=== PATIENT | female | born 1955 | race Caucasian/White ===

== ENCOUNTER 2018-10-25 08:30 | Inpatient (IN) | payer OTHER ==
[~2018-10-25] VITALS: Ht 157.5 cm; Wt 53.3 kg
--- NOTE | 2018-11-05 14:28 | RADRPT ---
Vent Rate: 62 bpm RR Interval: 0 msec OH Interval: 176 msec QRS Duration: 86 msec QT Interval: 418 msec QTC Interval: 424 msec P-R-T [place]: 71 - 8 - 47 degrees Sinus bradycardia with premature atrial complexes with aberrant conduction Low voltage QRS Borderline ECG Electronically Signed By: Gianluca Almanzar
[2018-11-07] MEDS ORDERED: TRANEXAMIC ACID 1GM/100ML(PMX) 100 ML IVPB ONE (06:30)
[2018-11-08] VITALS (22 sets, daily range): BP systolic 93–135; BP diastolic 49–59; PULSE 55–90; RESP 13–20; Ht 157.5 cm; Wt 53.3 kg
--- NOTE | 2018-11-08 06:08 | HPN ---
Date/Time of Note Date/Time of Note DATE: 11/08/18 TIME: 06:08 Interval H&P Admission Note Pt. seen H&P reviewed: No system changes ANU RICHARD MD Nov 08, 2018 06:08
--- NOTE | 2018-11-08 06:11 | OPR ---
Date/Time of Note Date/Time of Note DATE: 11/08/18 TIME: 06:08 Operative Report Procedure Date: Nov 08, 2018 Preoperative Diagnosis Right hip posttraumatic arthritis following hip arthroscopy Postoperative Diagnosis Right hip posttraumatic arthritis following hip arthroscopy Operation/Procedure Performed 1. Right total hip arthroplasty following hip arthroscopy 2. Right hip injection of PRP solution Surgeon see signature line Wedding Planner Leo Barton PA-C Second Wedding Planner: HANS DOCKERY Anesthesia Type: general Estimated Blood Loss: 200 - 250 ml's Transfusion none Specimen See operative note Grafts/Implants See operative note Complications none Pt Condition Post Procedure: stable Disposition: PACU Procedure Description CUSTOMER RELATIONS ASSISTANT SURGEON: Leo Barton PA-C was asked to be present at my request as a result of the complexity associated with this procedure including positioning of the extremity, positioning of the instrumentation and protection of the neurovascular structures. In my opinion, the assistance offered by a medical or surgical instrument maker is insufficient and Leo Barton PA-C should be compensated for his time. PROCEDURE IN DETAIL: Following the administration of general endotracheal anesthesia supplemented with a spinal anesthetic, the patient was placed in the supine position. The antecubital fossa on the right was prepped and 60 cc of blood were aspirated. Under sterile conditions, the blood was passed off to the new accounts representative from the company who prepared the PRP solution. The right lower extremity was then prepped and draped in the usual sterile fashion. A rn chronic radiograph was obtained for preliminary limb length and femoral size as well as acetabular size. A lateral incision was then made exposing the tensor fascia the fascia was incised the tensor was retracted laterally and the vessels were cauterized. Severe scarring was noted from the prior surgical procedure that included an arthroscopic labral repair and capsulorrhaphy. Significant scar tissue was then excised and mobilized in order to expose the anterior capsule. The anterior capsule was then identified and prepared. A capsulectomy was then performed and the femoral head was then evaluated. Severe arthritic changes were noted. In addition, multiple sutures were removed from the prior labral repair. A femoral head cut was then made in the appropriate degree of version and incl ination. Following dislocation, severe arthritic changes were noted with very certain severe cystic changes in the femoral head. The acetabulum was then exposed and a capsulectomy and labrectomy were completed. The central portion was then entered and serially reamed up to the 49 mm size. A [employer] cup which was 50 mm, with a standard liner was then fit into position with solid fixation. A 30 mm screw was used for additional fixation. Attention was then directed to the femur, the femur was exposed and prepared. The canal was entered and serially reamed up to the size 3. The femoral canal was then thoroughly irrigated and the PRP solution was then instilled into the femoral canal. A size 3 Depuy Actis stem was then inserted with solid fixation. A 32 mm, +1.5 mm femoral head, which was ceramic was then inserted. The leg was taken through full range of motion with no evident instability. In addition, radiographs revealed excellent position with reproduction of the limb lengths within a millimeter. The wound was irrigated thoroughly. The wound was then closed in layers and a Prenio for the final cover. This was watertight. Estimated blood loss was procedure was 250 cc. Postoperative radiographs will be obtained in the recovery room. ANU RICHARD MD Nov 08, 2018 06:11
[2018-11-08] MEDS ORDERED: SOD CHLORIDE 0.9% 100 ML, TRANEXAMIC ACID 3,000 MG IRR ONE ×2 (07:00)
[2018-11-08] MEDS ORDERED: VANCOMYCIN 1 GM (PMX) 250 ML IVPB ONE (07:00)
[2018-11-08] MEDS ORDERED: DEXAMETHASONE 1 MG TAB PO ONE (07:00)
[2018-11-08] MEDS ORDERED: GABAPENTIN 300 MG CAP PO ONE (07:00)
[2018-11-08] MEDS ORDERED: BUPIVACAINE 0.5% (SDV) 30 ML, morphine SULFATE (PF) 8 MG, EPINEPHrine 0.3 MG, KETOROLAC... IRR SCH ×7 (07:00)
[2018-11-08] MEDS ORDERED: LIDOCAINE 2% (SDV) 5 ML INJ ONE (07:00)
[2018-11-08] MEDS ORDERED: TRANEXAMIC ACID 1GM/100ML(PMX) 100 ML IVPB ONE (07:00)
[2018-11-08] MEDS ORDERED: ESTR2TAB PO (11:13)
[2018-11-08] MEDS ORDERED: MEDR2.5T21 PO (11:13)
[2018-11-08] MEDS ORDERED: ALBU18HF INHALATION (11:14)
[2018-11-08] MEDS ORDERED: OMEP20CA16 PO (11:14)
[2018-11-08] MEDS ORDERED: MIDAZOLAM 1 MG/ML 2 ML INJ ONE (11:54)
--- NOTE | 2018-11-08 12:01 | PREAC ---
Date/Time of Note Date/Time of Note DATE: 11/08/18 TIME: 12:00 Anesthesia Eval and Record Evaluation Time Pre-Procedure Interview DATE: 11/08/18 TIME: 12:00 Age 62 Sex female NPO: 8 hrs Preoperative diagnosis R Hip OA Planned procedure R Total Hip Replacement Past Medical History Past Medical History: Includes Pulm: Asthma GI: GERD Psych: Anxiety Surgery & Anesthesia Issues No known issue Meds Anticoagulation: No Beta Emy within 24 hr: No Reason Beta Emy not given: Pt. not on B-Emy Reported Medications Omeprazole* (Omeprazole*) 20 Mg Capsule.dr, 20 MG PO DAILY PRN for GASTROINTESTINAL UPSET, #30 CAP 11/08/18 Albuterol Sulfate* (Ventolin HFA*) 18 Gm Hfa.aer.ad, 2 PUFF INHALATION Q4H, #1 INHALER 11/08/18 Medroxyprogesterone Acetate* (Medroxyprogesterone Acetate*) 2.5 Mg Tablet, 2.5 MG PO DAILY, TAB 11/08/18 Estradiol* (Estradiol*) 2 Mg Tablet, 1 MG PO DAILY, TAB 11/08/18 Current Medications Bupivacaine HCl/ Morphine Sulfate/ Epinephrine/ Ketorolac Tromethamine/ Clonidine/Sodium Chloride/ Vancomycin HCl INTRA-OP IRR ; Start 11/08/18 at 07:00 Meds reviewed: Yes Allergies Coded Allergies: Penicillins (Verified Allergy, Unknown, 11/08/18) Sulfa (Sulfonamide Antibiotics) (Verified Allergy, Unknown, 11/08/18) Tetanus Vaccines and Toxoid (Verified Allergy, Unknown, 11/08/18) doxycycline (Verified Allergy, Unknown, 11/08/18) egg (Verified Allergy, Unknown, 11/08/18) gentamicin (Verified Allergy, Unknown, 11/08/18) ibuprofen (Verified Allergy, Unknown, 11/08/18) polymyxin B (Verified Allergy, Unknown, 11/08/18) teriparatide (Verified Allergy, Unknown, 11/08/18) Allergies Reviewed: Yes Labs/Studies Labs Reviewed: Reviewed by anesthesiologist Result Diagram: 11/05/18 1311 11/05/18 1311 test: Negative Studies: ECG Pre-procedure Exam Airway: Adequate mouth opening, Adequate thyromental dist Mallampati: Mallampati II Teeth: Normal Lung: Normal Heart: Normal ASA Physical Status ASA physical status: 2 Emergency: None Planned Anesthetic General/MAC: ETT Neuraxial: Spinal Planned Pain Management Sub-arachniod narcotics Pre-operative Attestations Prior to commencing anesthesia and surgery, the patient was re-evaluated, there was verification of: *The patient's identity *The results of appropriate recent lab work and preoperative vital signs *The above evaluation not changing prior to induction *Anesthetic plan, risk benefits, alternative and complications discussed with patient/family; questions answered; patient/family understands, accepts and wishes to proceed. CANDE FELDMAN Nov 08, 2018 12:01
[2018-11-08] MEDS ORDERED: PHENYLephrine (100 MCG/ML) 10ML SYG ONE (12:21)
[2018-11-08] MEDS ORDERED: HYDROmorphONE 1 MG/5 ML IV SYRINGE IV PRN ×3 (12:30)
[2018-11-08] MEDS ORDERED: ONDANSETRON 4 MG INJ IV PRN ×2 (12:30→13:30)
[2018-11-08] MEDS ORDERED: METOCLOPRAMIDE 10 MG INJ IV PRN (12:30)
[2018-11-08] MEDS ORDERED: DIPHENHYDRAMINE 50 MG INJ IV PRN ×2 (12:30→13:30)
[2018-11-08] MEDS ORDERED: MEPERIDINE 25 MG INJ IV PRN (12:30)
[2018-11-08] MEDS ORDERED: FENTAnyl 50 MCG/ML VIAL IV PRN ×2 (12:30)
[2018-11-08] MEDS ORDERED: ALBUTEROL 0.083% (NEB) 2.5 MG/3 ML AMP HHN PRN (12:30)
[2018-11-08] MEDS ORDERED: THROMBIN 5000 UNIT VIAL ONE (12:36)
[2018-11-08] MEDS ORDERED: CA CHLORIDE 10% 10 ML SYRINGE ONE (12:36)
[2018-11-08] MEDS ORDERED: MAGNESIUM HYDROXIDE 30ML CUP PO PRN (13:30)
[2018-11-08] MEDS ORDERED: oxyCODONE 5 MG TAB PO PRN ×3 (13:30)
[2018-11-08] MEDS: LACTATED RINGER'S 1,000 ML IV SCH ×2 (13:30→22:45)
[2018-11-08] MEDS ORDERED: HYDROmorphONE 1 MG/ML SYG IV PRN (13:30)
[2018-11-08] MEDS ORDERED: NACL 0.9% 3 ML SYG IV SCH (13:30)
[2018-11-08] MEDS ORDERED: ZOLPIDEM 5 MG TAB PO PRN (13:30)
[2018-11-08] MEDS ORDERED: ROCURONIUM 50 MG INJ ONE (13:38)
[2018-11-08] MEDS ORDERED: SUCCINYLCHOLINE CHLORIDE 100 MG/5 ML SYG IV ONE (13:38)
[2018-11-08] MEDS ORDERED: SUGAMMADEX SODIUM 200 MG/2 ML VIAL IV ONE (13:38)
[2018-11-08] MEDS ORDERED: PROPOFOL 20 ML ONE (13:38)
[2018-11-08] MEDS: ACETAMINOPHEN 1000MG/100ML IV 100 ML IVPB SCH ×2 (15:04→22:41)
[2018-11-08] MEDS: DEXAMETHASONE 2 MG TAB PO SCH (18:00)
[2018-11-08] MEDS ORDERED: VANCOMYCIN 500 MG (PMX) 100 ML IVPB SCH (18:00)
--- NOTE | 2018-11-08 18:07 | PDOCDIS ---
Discharge Instructions DIAGNOSIS Discharge Diagnosis Post-Traumatic arthritis CONDITION [id number] Patient Condition: [id number] Good HOME CARE INSTRUCTIONS: [id number] Diet Instructions: [id number] Regular ACTIVITY: [id number] Activity Restrictions: Etvoc7m Slowly Increase Activity Keep Limb Elevated [id number] Bathing Restrictions: Imbfm0z Shower FOLLOW UP/APPOINTMENTS Follow-up Plan 2 weeks SCHOOL/WORK RELEASE May return to School/Work with: With Restrictions School/Work Release Comment: No hip extension for three months ANU RCIHARD MD Nov 08, 2018 18:07
--- NOTE | 2018-11-08 18:58 | PAC ---
Date/Time of Note Date/Time of Note DATE: 11/08/18 TIME: 18:58 Post-Anesthesia Notes Post-Anesthesia Note Last documented vital signs Vital Signs Date Temp Pulse Resp B/P (MAP) Pulse Ox O2 O2 Flow FiO2 Time Delivery Rate 11/08/18 98.0 62 18 108/56 95 Room Air 18:15 (73) 11/08/18 8.0 14:12 Activity: WNL Respiratory function: WNL Cardiovascular function: WNL Mental status: Baseline Pain reasonably controlled: Yes Hydration appropriate: Yes Nausea/Vomiting absent: Yes CANDE FELDMAN Nov 08, 2018 18:58
[2018-11-08] MEDS ORDERED: GABAPENTIN 300 MG CAP PO SCH (21:00)
[2018-11-08] MEDS: SENNA/DOCUSATE NA (8.6MG/50MG) TAB PO SCH (21:00)
[2018-11-09 00:11] VITALS: BP 91/54; PULSE 65; RESP 18
[2018-11-09] MEDS: DEXAMETHASONE 2 MG TAB PO SCH ×3 (06:00→12:23)
--- NOTE | 2018-11-09 06:12 | PN ---
Date/Time of Note Date/Time of Note DATE: 11/09/18 TIME: 06:12 Subjective Awake and alert this morning. No complaints. Objective Vitals Vital Signs Date Temp Pulse Resp B/P (MAP) Pulse Ox O2 O2 Flow FiO2 Time Delivery Rate 11/09/18 98.5 65 18 91/54 (66) 98 Room Air 00:11 11/08/18 8.0 14:12 Intake and Output 11/08/18 11/08/18 11/09/18 1515:00 23:00 07:00 IntakeIntake Total 2200 ml 100 ml 700 ml OutputOutput Total 600 ml 1200 ml BalanceBalance 1600 ml 100 ml -500 ml Wound is clean and dry. Neurologically intact. No signs of DVT. Results Result Diagram: 11/09/18 0448 11/05/18 1311 Medications Medications Current Medications Estradiol (Estrace) 1 mg DAILY PO ; Start 11/09/18 at 09:00 Medroxyprogesterone Acetate (Provera) 2.5 mg DAILY PO ; Start 11/09/18 at 09:00 Pantoprazole (Protonix Tab) 40 mg DAILY PRN PO GASTROINTESTINAL UPSET; Start 11/09/18 at 09:00 Lactated Ringer's 1,000 ml @ 100 mls/hr Q10H IV Last administered on 11/08/18at 22:45; Admin Dose 100 MLS/HR; Start 11/08/18 at 13:30 Senna/Docusate Sodium (Senokot-S) 1 tab BID PO ; Start 11/08/18 at 21:00 Simethicone (Mylicon) 80 mg TID PRN PO .GAS; Start 11/08/18 at 13:30 Magnesium Hydroxide (Milk Of Mag) 30 ml BID PRN PO .CONSTIPATION; Start 11/08/18 at 13:30 Magnesium Hydroxide (Milk Of Mag) 30 ml HS PO ; Start 11/10/18 at 21:00 Dexamethasone (Decadron) 2 mg Q6 PO ; Start 11/08/18 at 18:00; Stop 11/09/18 at 12:01 Gabapentin (Neurontin) 300 mg HS PO ; Start 11/08/18 at 21:00 Acetaminophen 100 ml @ 400 mls/hr Q8H IVPB Last administered on 11/08/18at 22:41; Admin Dose 400 MLS/HR; Start 11/08/18 at 14:00; Stop 11/09/18 at 06:14 Oxycodone HCl (Roxicodone) 15 mg Q4H PRN PO .PAIN; Start 11/08/18 at 13:30 Oxycodone HCl (Roxicodone) 10 mg Q4H PRN PO .PAIN; Start 11/08/18 at 13:30 Oxycodone HCl (Roxicodone) 5 mg Q4H PRN PO .PAIN; Start 11/08/18 at 13:30 Hydromorphone HCl (Dilaudid) 1 mg Q4H PRN IV .BREAKTHROUGH PAIN; Start 11/08/18 at 13:30 Ondansetron HCl (Zofran Inj) 4 mg Q6H PRN IV NAUSEA/VOMITING; Start 11/08/18 at 13:30 Diphenhydramine HCl (Benadryl) 25 mg Q6H PRN IV .PRURITUS; Start 11/08/18 at 13:30 Zolpidem Tartrate (Ambien) 10 mg HS PRN PO .INSOMNIA; Start 11/08/18 at 13:30 IV Flush (NS 3 ml) 3 ml per protocol IV ; Start 11/08/18 at 13:30 Vancomycin HCl 100 ml @ 100 mls/hr Q12H IVPB ; Start 11/09/18 at 13:00; Stop 11/09/18 at 13:59 VTE Prophylaxis Risk score (from Nsg)>0 risk: 5 SCD applied (from Nsg): No SCD contraindication: low risk/ambulating Lines/Catheters IV Catheter Type: Saline Lock Mantilla in Place: No Assessment/Plan Assessment/Plan Assessment: Status post total hip replacement Plan: Begin PT this morning discharge after cleared ANU RICHARD MD Nov 09, 2018 06:12
--- NOTE | 2018-11-09 06:13 | DS ---
Date/Time of Note Date/Time of Note DATE: 11/09/18 TIME: 06:12 Discharge Summary Admission/Discharge Info Admit Date/Time Nov 08, 2018 at 10:03 Discharge Date/Time 11/09/2018 Discharge Diagnosis Post-Traumatic arthritis Patient Condition: Good Hospital Course Admitted and underwent uncomplicated procedure. Postop day 1 discharge after PT Home Meds Reported Medications Omeprazole* (Omeprazole*) 20 Mg Capsule.dr, 20 MG PO DAILY PRN for GASTROINTEST INAL UPSET, #30 CAP 11/08/18 Albuterol Sulfate* (Ventolin HFA*) 18 Gm Hfa.aer.ad, 2 PUFF INHALATION Q4H, #1 INHALER 11/08/18 Medroxyprogesterone Acetate* (Medroxyprogesterone Acetate*) 2.5 Mg Tablet, 2.5 MG PO DAILY, TAB 11/08/18 Estradiol* (Estradiol*) 2 Mg Tablet, 1 MG PO DAILY, TAB 11/08/18 Follow-up Plan 2 weeks Primary Care Provider Not On Staff Doctor Pending Labs Laboratory Tests Test 11/08/18 14:07 11/09/18 04:48 White Blood Count 5.6 10^3/ul (4.8-10.8) 6.4 10^3/ul (4.8-10.8) Red Blood Count 3.96 10^6/ul (4.20-5.40) 3.27 10^6/ul (4.20-5.40) Hemoglobin 11.7 g/dl (12.0-16.0) 9.7 g/dl (12.0-16.0) Hematocrit 36.4 % (37.0-47.0) 30.2 % (37.0-47.0) Mean Corpuscular Volume 91.9 fl (82.0-101.0) 92.4 fl (82.0-101.0) Mean Corpuscular 29.5 pg (29.0-33.0) 29.7 pg (29.0-33.0) Hemoglobin Mean Corpuscular 32.1 g/dl (32.0-37.0) 32.1 g/dl (32.0-37.0) Hemoglobin Concent Red Cell Distribution 12.7 % (11.5-14.5) 13.0 % (11.5-14.5) Width Platelet Count 204 10^3/UL (140-415) 184 10^3/UL (140-415) Mean Platelet Volume 9.6 fl (7.4-10.4) 9.9 fl (7.4-10.4) Immature Granulocytes % 0.500 % (0.001-0.429) 0.500 % (0.001-0.429) Neutrophils % 69.1 % (39.0-77.0) 75.6 % (39.0-77.0) Lymphocytes % 23.9 % (15.0-51.0) 14.5 % (15.0-51.0) Monocytes % 3.8 % (0.0-11.0) 8.9 % (0.0-11.0) Eosinophils % 2.0 % (0.0-7.0) 0.2 % (0.0-7.0) Basophils % 0.7 % (0.0-2.0) 0.3 % (0.0-2.0) Nucleated Red Blood Cells 0.0 /100WBC (0.0-0.0) 0.0 /100WBC (0.0-0.0) % Immature Granulocytes # 0.030 10^3/ul (0.0-0.031) 0.030 10^3/ul (0.0-0.031) Neutrophils # 3.8 10^3/ul (1.6-7.5) 4.9 10^3/ul (1.6-7.5) Lymphocytes # 1.3 10^3/ul (0.8-2.9) 0.9 10^3/ul (0.8-2.9) Monocytes # 0.2 10^3/ul (0.3-0.9) 0.6 10^3/ul (0.3-0.9) Eosinophils # 0.1 10^3/ul (0.0-0.5) 0.0 10^3/ul (0.0-0.5) Basophils # 0.0 10^3/ul (0.0-0.1) 0.0 10^3/ul (0.0-0.1) Nucleated Red Blood Cells 0.0 10^3/ul (0.0-0.0) 0.0 10^3/ul (0.0-0.0) # ANU RICHARD MD Nov 09, 2018 06:13
[2018-11-09] MEDS: ACETAMINOPHEN 1000MG/100ML IV 100 ML IVPB SCH (06:21)
[2018-11-09 07:47] VITALS: BP 87/44; PULSE 64; RESP 18
[2018-11-09] MEDS: SENNA/DOCUSATE NA (8.6MG/50MG) TAB PO SCH (08:48)
[2018-11-09] MEDS ORDERED: MEDROXYPROGESTERONE 2.5 MG TAB PO SCH (09:00)
[2018-11-09] MEDS ORDERED: PANTOPRAZOLE (EC) 40 MG TAB PO PRN (09:00)
[2018-11-09] MEDS ORDERED: ESTRADIOL 1 MG TAB PO SCH (09:00)
[2018-11-09] MEDS: LACTATED RINGER'S 1,000 ML IV SCH (09:30)
[2018-11-09 09:53] VITALS: BP 92/53; PULSE 68
[2018-11-09] MEDS ORDERED: VANCOMYCIN 500 MG (PMX) 100 ML IVPB SCH (13:00)
[2018-11-09 15:10] VITALS: BP 110/53; PULSE 78; RESP 18
[2018-11-10] MEDS ORDERED: MAGNESIUM HYDROXIDE 30ML CUP PO SCH (21:00)
== END 2018-11-09 16:53 | disposition home or self-care (01) | DRG 470 ==
LOC: REC 11-08 10:03 → MS1 11-08 15:24
PROVIDERS: ADMIT Orthopaedic Surgery; ATTEND Orthopaedic Surgery
PROC: 0SR904A Replacement of Right Hip Joint with Ceramic on Polyethylene Synthetic Substitute, Uncemented, Open Approach (ICD-10-PCS; principal; 2018-11-08 12:00)
DX: M16.51 Unilateral post-traumatic osteoarthritis, right hip (principal); Z98.890 Other specified postprocedural states; F41.9 Anxiety disorder, unspecified; K21.9 Gastro-esophageal reflux disease without esophagitis
CPT/HCPCS: 71045; 72170; 73530; 80053; 81003; 85025; 86999; 87086; 88304; 88311; 93005; 97116; 97161; 97530; C1713; C1776; J0131; J0171; J0735; J1885; J2250; J2274; J2370; J2405; J3370; J7120